=== PATIENT | male | born 2000 | race Caucasian/White ===

== ENCOUNTER 2023-02-09 10:09 | Emergency (ER) | payer OTHER, SELFPAY ==
[2023-02-09 10:16] VITALS: BP 123/60; PULSE 76; RESP 18; TEMP 36.5; O2SAT 99; BMI 22.4
--- NOTE | 2023-02-09 10:26 | DI.RAD.S_ITS ---
PROCEDURE: XR CHEST 2V INDICATIONS: short of breath, h/o asthma. TECHNIQUE: 2 views of the chest were acquired. COMPARISON: None. FINDINGS: Surgical changes and devices: None. Lungs and pleura: Lungs are clear. No pleural effusions or pneumothorax. Mediastinum: Mediastinal contours are normal. Heart size is normal. Bones and chest wall: No suspicious bony abnormalities. Soft tissues appear unremarkable. IMPRESSION: No acute cardiopulmonary process. Dictated by: Viktor Campbell M.D. on 02/09/2023 at 10:57 Approved by: Viktor Campbell M.D. on 02/09/2023 at 10:58
[2023-02-09 10:40] LABS: COVID19 -Nasal RAPID Negative (Negative)
[2023-02-09 11:24] VITALS: PULSE 70; RESP 12; O2SAT 99
--- NOTE | 2023-02-09 11:39 | ED_ITS ---
HPI - General Adult General Chief complaint: Shortness of Breath/Dyspnea Stated complaint: SOB,winded with physical activity Time Seen by Provider: 02/09/23 11:18 Source: patient Mode of arrival: Ambulatory History of Present Illness HPI narrative: Patient is a 22-year-old male. Has a history of asthma. On of last week and a fairly significant asthma attack. The next day he went to the walk- in clinic. Received steroids. He also smokes marijuana on a daily basis. He states he is no longer wheezing but today while he was at work he is experiencing quite a bit of fatigue and feeling like he is not taking a deep breath. No chest pain. No cough. No fevers. Related Data Home Medications Medication Instructions Recorded Confirmed albuterol sulfate 90 mcg/actuation 2 puff inhalation Q4H PRN wheezing 02/09/23 02/09/23 aerosol inhaler methylprednisolone 4 mg tablets in 0 mg PO DIRECTED 02/09/23 02/09/23 a dose pack Allergies Allergy/AdvReac Type Severity Reaction Status Date / Time No Known Drug Allergies Allergy Verified 02/09/23 10:22 Review of Systems Cardiovascular Cardiovascular: Reports system reviewed and no additional complaints, except as documented Respiratory Respiratory: Reports system reviewed and no additional complaints, except as documented Integumentary/Breasts Skin/Breast: Reports system reviewed and no additional complaints, except as documented Allergic/Immunologic Allergic/Immunologic: Reports system reviewed and no additional complaints, ex cept as documented Patient History Medical History Asthma Social History Smoking Status: Current some day smoker Smoking Status: Current some day smoker tobacco type: vaping alcohol intake frequency: 0-2 drinks per day Substance Use Type: marijuana Exam Initial Vital Signs Initial Vital Signs: Vital Signs Temperature 97.7 F 02/09/23 10:16 Pulse Rate 76 02/09/23 10:16 Respiratory Rate 18 02/09/23 10:16 Blood Pressure 123/60 02/09/23 10:16 Pulse Oximetry 99 02/09/23 10:16 Oxygen Delivery Method Room Air 02/09/23 10:16 HENMT Head: normal to inspection and normocephalic Resp Effort & Inspection: normal respiratory effort Auscultation: clear to auscultation bilaterally Cardio Rate: regular rate Rhythm: regular rhythm Neuro General: patient alert, patient awake and moves all extremities Extrem General: No edema Scores PERC Score Age greater than or equal to 50 years: No Heart rate greater than or equal to 100 bpm: No Room Air O2 Sat less than 95%: No Unilateral leg swelling: No Recent trauma or surgery: No Hemoptysis: No Prior PE or DVT: No Hormone Use: No Total PERC Score: 0 Course Orders Ordered: ED Orders 02/09/23 10:22 COVID19 -Nasal RAPID Stat 02/09/23 10:26 XR chest 2V Stat 02/09/23 10:31 EKG-12 Lead Stat Vital Signs Vital signs: Vital Signs - 8 hr 02/09/23 10:16 02/09/23 11:24 Temperature 97.7 F Pulse Rate 76 70 Respiratory Rate 18 12 Blood Pressure 123/60 Pulse Oximetry 99 99 Oxygen Delivery Method Room Air Room Air Medical Decision Making Lab Data Lab results reviewed: Yes I reviewed the patient's lab results. Labs: Lab Results 02/09/23 Range/Units 10:22 SARS-CoV-2 (PCR) Negative (Negative) Imaging Data Chest x-ray: Radiologist's Impression: PROCEDURE:? XR CHEST 2V ? INDICATIONS:? short of breath, h/o asthma. ? TECHNIQUE:? 2 views of the chest were acquired.? ? COMPARISON:? None. ? FINDINGS:? ? Surgical changes and devices:? None.? ? Lungs and pleura:? Lungs are clear.? No pleural effusions or pneumothorax.? ? Mediastinum:? Mediastinal contours are normal.? Heart size is normal.? ? Bones and chest wall:? No suspicious bony abnormalities.? Soft tissues appear unremarkable.? ? IMPRESSION:? No acute cardiopulmonary process. ECG Data Interpretation: Sinus rhythm Sinus arrhythmia Ventricular rate is 65 Normal axis Normal QRS Normal QTC No ST T wave changes MDM Narrative Medical decision making narrative: Chest x-ray is negative, COVID is negative, EKG is unremarkable, not tachypneic. Not hypoxic. Lungs are clear. Low suspicion for infection. Low suspicion for pulmonary embolism. Low suspicion for ACS. I do suspect that some of his symptoms related to the event that happened last week and potentially steroids that he has been taking today. Advised that he not smoke marijuana until his symptoms have improved. He will start taking a antihistamine from [id number]. He was given return precautions. He expressed understanding and agreement. Discharge Plan Departure Patient Disposition: Home Clinical Impression: Asthma Instructions: DI for Asthma -- Adult Activity Restrictions/Additional Instructions: I do recommend that you continue to take all your medications as directed and recommend that you start taking the antihistamine such as Claritin or Beatriz or Zyrtec. Contact your primary doctor for follow-up. Prescriptions: No Action methylprednisolone 4 mg tablets,dose pack 0 mg PO DIRECTED albuterol sulfate 90 mcg/actuation HFA aerosol inhaler 2 puff INHALATION Q4H PRN (Reason: wheezing) Stand Alone Forms: Patient Portal/API, Work Release Note
[2023-02-09 11:47] VITALS: BP 122/58; PULSE 70; RESP 20; O2SAT 100
== END 2023-02-09 11:45 | disposition home or self-care (01) ==
PROVIDERS: Emergency Provider Emergency Medicine
DX: J45.909 Unspecified asthma, uncomplicated (principal); Z20.822 Contact with and (suspected) exposure to COVID-19
CPT/HCPCS: 71046; 87635; 93005; 99283; 99284; C9803

== ENCOUNTER → 2023-11-04 10:34 | Outpatient (CLI) | payer OTHER, SELFPAY ==
--- NOTE | 2023-11-04 | DI.RAD.S_ITS ---
PROCEDURE: XR FINGER LT MIN 2V INDICATIONS: trauma tip of left middle finger TECHNIQUE: AP hand, 2 views of the 3rd finger(s) acquired. COMPARISON: None. FINDINGS: Bones: No fractures or dislocations. No suspicious bony lesions. Soft tissues: No suspicious soft tissue calcifications. IMPRESSION: Unremarkable 3rd finger radiographs. No fracture Approved by: Nguyễn Devi M.D. on 11/04/2023 at 19:16
== END ==
PROVIDERS: PCP Family Medicine; Referring Provider Family Medicine; Visit Provider Family Medicine
DX: S69.92XA Unspecified injury of left wrist, hand and finger(s), initial encounter (principal); M79.646 Pain in unspecified finger(s); X58.XXXA Exposure to other specified factors, initial encounter
CPT/HCPCS: 73140

== ENCOUNTER → 2024-01-04 14:40 | Outpatient (CLI) | payer OTHER, SELFPAY ==
--- NOTE | 2024-01-04 14:43 | DI.RAD.S_ITS ---
PROCEDURE: XR SHOULDER RT MIN 2V INDICATIONS: RIGHT SHOULDER PAIN TECHNIQUE: 3 views of the shoulder were acquired. COMPARISON: None. FINDINGS: Bones: No fractures or dislocations. No radiographic evidence of a Hill-Sachs deformity or osseous Bankart lesion. No suspicious bony lesions. Joint spaces are maintained. Visualized ribs appear intact. Soft tissues: No suspicious soft tissue calcifications. IMPRESSION: No acute fracture or dislocation. Normal alignment. Dictated by: Chad Gonzales M.D. on 01/04/2024 at 16:53 Approved by: Chad Gonzales M.D. on 01/04/2024 at 16:54
== END ==
PROVIDERS: PCP Family Medicine; Referring Provider Family Medicine; Visit Provider Family Medicine
DX: M24.411 Recurrent dislocation, right shoulder (principal)
CPT/HCPCS: 73030

== ENCOUNTER 2024-04-07 13:16 | Emergency (ER) | payer OTHER, SELFPAY ==
[2024-04-07] VITALS (8 sets, daily range): BP systolic 123–125; BP diastolic 76–77; PULSE 76–112; RESP 12–20; TEMP 37.2; O2SAT 96–99; BMI 26.5
--- NOTE | 2024-04-07 | DI.RAD.S_ITS ---
PROCEDURE: XR SHOULDER RT MIN 2V INDICATIONS: Post reduction of dislocation TECHNIQUE: 2 views of the shoulder were acquired. COMPARISON: [facility], CR, XR SHOULDER RT MIN 2V, 04/07/2024, 13:38. FINDINGS: Bones: Interval reduction with relatively good anatomic alignment. No discrete fracture. Soft tissues: No suspicious soft tissue calcifications. IMPRESSION: Good anatomic alignment with reduction of previous anterior dislocation. No discrete fractures identified. Dictated by: Bonita Phillips M.D. on 04/07/2024 at 15:19 Approved by: Bonita Phillips M.D. on 04/07/2024 at 15:20
--- NOTE | 2024-04-07 13:32 | DI.RAD.S_ITS ---
PROCEDURE: XR SHOULDER RT MIN 2V INDICATIONS: dislocation TECHNIQUE: 2 views of the shoulder were acquired. COMPARISON: [facility], CR, XR SHOULDER RT MIN 2V, 01/04/2024, 14:47. FINDINGS: Bones: Humeral head is located inferior medial to the glenohumeral joint space. No visualized fracture. Soft tissues: No suspicious soft tissue calcifications. IMPRESSION: Anterior dislocation. No gross fracture. Recommend follow-up imaging after reduction for further evaluation of possible fracture. Dictated by: Bonita Phillips M.D. on 04/07/2024 at 14:06 Approved by: Bonita Phillips M.D. on 04/07/2024 at 14:06
[2024-04-07] MEDS: OXYCODONE/ACETAMINOPHEN 5/325 TABLET 1 TAB PO (13:39)
[2024-04-07] MEDS: IBUPROFEN 400 MG TABLET PO (13:39)
[2024-04-07] MEDS: HYDROMORPHONE 1 MG INJ 0.5 MG IV (14:13)
[2024-04-07] MEDS: propofoL 200 MG/20 ML VIAL IV (14:26)
--- NOTE | 2024-04-07 14:47 | ED.GENADULT ---
HPI - General Adult General Chief complaint: Extremity Injury, Upper Stated complaint: poss dislocated R shoulder Time Seen by Provider: 04/07/24 13:45 Source: patient Mode of arrival: Ambulatory History of Present Illness HPI narrative: 21-year-old young man presents with acute right shoulder pain strongly suspected shoulder dislocation. He states this will be his 6th shoulder dislocation on that side. He dislocated it 2 times in 1 week approximately 2 months ago. He just finished a 6 week course of physical therapy. He works in the [employer] and had his arm extended up above his head and was externally rotating slipped and the arm was pulled. He is in severe pain on arrival. Able to be cooperative. Describes some tingling in his fingertips Related Data Home Medications Medication Instructions Recorded Confirmed albuterol sulfate 90 mcg/actuation 2 puff inhalation Q4H PRN wheezing 02/09/23 06/05/23 aerosol inhaler Allergies Allergy/AdvReac Type Severity Reaction Status Date / Time No Known Drug Allergies Allergy Verified 04/07/24 13:28 Review of Systems Review of Systems Narrative: Pertinent positive and negative findings as per HPI Patient History Medical History Mood disorder PTSD (post-traumatic stress disorder) Suicidal ideation Vapes nicotine containing substance Asthma Social History Smoking Status: Former smoker Smoking Status: Former smoker tobacco type: vaping alcohol intake frequency: 0-2 drinks per day Substance Use Type: marijuana Exam Initial Vital Signs Initial Vital Signs: Vital Signs Temperature 99.0 F 04/07/24 13:24 Pulse Rate 112 H 04/07/24 13:24 Respiratory Rate 20 04/07/24 13:24 Pulse Oximetry 97 04/07/24 13:24 Oxygen Delivery Method Room Air 04/07/24 13:24 General: Alert appropriate in no acute distress Respiratory: Able to speak in full sentences, no obvious respiratory distress Skin: No obvious rashes, warm and dry Neurologic: Grossly intact no obvious asymmetries or abnormalities Psych: appropriate insight and affect, cooperative Extremity: Holding his right arm at 45 degree angle abducted. Procedures Orthopedic Joint Reduction Right shoulder: Time of procedure: 15:06 Time Out Performed: Yes Side: right Joint Reduction Location: shoulder Analgesia: procedural sedation Shoulder Technique Used (if applicable): traction/counter-traction and scapula manipulation Post-reduction neuro exam: intact Post-reduction vascular: intact Post Reduction X-Ray Obtained: Yes Post Reduction X-Ray Results: reduced Splint Applied: Yes Patient Tolerated Procedure: Well Procedural Sedation Time of procedure: 15:09 Consent signed: Yes Indication: fracture/dislocation reduction ASA Class: I Preparation: quality assurance monitor body applied, pulse oximeter, capnometry used, supplemental O2 applied, suction/airway equipment at bedside and IV secured IV Propofol dose (mg): 160 Intraservice time/total sedation time (min): 9 ED Sedation Level: Moderate (Concious) Additional Comments: Due to pain we were unable to completely an dressed the patient prior to the procedure. He was initially given 40 mg of propofol to get all of his outer your off. Additional aliquots up to a total of 160 mg for adequate sedation to reduce the shoulder. No complications with respiratory depression Course Orders Ordered: ED Orders 04/07/24 13:32 XR shoulder RT min 2V Stat Discontinued Medications Hydromorphone HCl (Hydromorphone 1 Mg Inj) 0.5 mg IV NOW ONE Stop: 04/07/24 14:06 Last Admin: 04/07/24 14:13 Dose: 0.5 mg Documented By: TINO Ibuprofen (Ibuprofen 400 Mg Tablet) 400 mg PO NOW ONE Stop: 04/07/24 13:37 Last Admin: 04/07/24 13:39 Dose: 400 mg Documented By: RAYRAY Oxycodone/Acetaminophen (Oxycodone/Acetaminophen 5/325 Tablet) 1 tab PO NOW ONE Stop: 04/07/24 13:37 Last Admin: 04/07/24 13:39 Dose: 1 tab Documented By: RAYRAY Propofol (Propofol 200 Mg/20 Ml Vial) 200 mg IV NOW ONE Stop: 04/07/24 14:15 Last Admin: 04/07/24 14:26 Dose: 200 mg Documented By: TINO Vital Signs Vital signs: Vital Signs - 8 hr 04/07/24 13:24 04/07/24 14:25 04/07/24 14:41 Temperature 99.0 F Pulse Rate 112 H 81 Respiratory Rate 20 12 16 Blood Pressure 123/77 Pulse Oximetry 97 99 96 Oxygen Delivery Method Room Air Oxygen Flow Rate 0 Medical Decision Making MDM Narrative Medical decision making narrative: CC: Acute shoulder pain Complicating co-morbidities: This is his 6th shoulder dislocation of the age of 23, just completed a 6 week course of physical therapy for the same Data collected from: patient Differential considered: Shoulder dislocation, fracture, combination of both Exam documented above, pertinent findings include: Initial exam his shoulder is held at 90 degree flexion in 90 degree abduction for comfort. No other injuries Imaging studies independently reviewed: Initial x-ray demonstrates an anterior dislocation without fracture Postreduction x-ray indicates appropriately reduced shoulder Treatments: Sedation, shoulder reduction Re-evaluations: Patient is doing quite well after the procedure. Arm is in a sling. Discussion: 23-year-old gentleman with right shoulder dislocation now relocated. He has in a sling with adjustment around the body to hold the arm in place. He was referred to Orthopedic surgery. He is aware that after this many dislocations he does need evaluation even though he has been avoiding talking with the orthopedic surgeons. He is neurovascularly intact. Pain is adequately controlled and he will be discharged home Discharge Plan Departure Patient Disposition: Home Clinical Impression: Anterior shoulder dislocation Qualifiers: Encounter type: initial encounter Laterality: right Qualified Code(s): S43.014A - Anterior dislocation of right humerus, initial encounter Instructions: DI for Shoulder Dislocation, DI for Moderate Sedation Activity Restrictions/Additional Instructions: Thank you for coming in today You need to see an orthopedic surgeon about your repeatedly dislocating shoulder. You were given propofol to help your muscles relax and the shoulder was reduced. You need to stay in the sling with the area around your body tight so that your arm is not moving for at least a week. Using 400 mg of ibuprofen (2 [id number] pills) and 1 Tylenol every 6 hours can be very helpful in controlling pain. Please contact [facility] at [phone] explain that you were seen in the emergency department with a shoulder dislocation that was reduced. This is the 6th time that has happened and you need to be further evaluated If you find that you are getting worse or develop any new symptoms, please feel free to return to the emergency department for further evaluation. Prescriptions: No Action albuterol sulfate 90 mcg/actuation HFA aerosol inhaler 2 puff INHALATION Q4H PRN (Reason: wheezing) Referrals: Radha Galicia MD [Primary Care Provider] - Stand Alone Forms: Patient Portal/API
--- NOTE | 2024-04-07 14:53 | PC.NURSE ---
Prior to reduction, patient undressed from work clothes during procedural sedation. Dr. Seo able to reduce right shoulder with no complications. Patient vs remained stable and pt tolerated well. RT at bedside for procedure. Post reduction xray ordered and completed at bedside.
--- NOTE | 2024-04-07 14:59 | PC.NURSE ---
14:25 40Mg Propofol administed by MD Seo. Began undressing pt. PAtient still conversing and moaning in pain. at 1428, additional 60mg propofol administered IV by MD. Able to undress patient and get to bed for prodedure. First attempt for reduction was unsuccessful, patient moaning. Additioanl 60mg propofol administered by provider. 2nd attempt successful.
== END 2024-04-07 15:22 | disposition home or self-care (01) ==
PROVIDERS: Emergency Provider Emergency Medicine; PCP Family Medicine
DX: S43.014A Anterior dislocation of right humerus, initial encounter (principal)
CPT/HCPCS: 23650; 73030; 96374; 99284; 99285; J1171; J2704

== ENCOUNTER → 2024-04-25 10:42 | Outpatient (CLI) | payer OTHER, SELFPAY ==
--- NOTE | 2024-04-25 | DI.RAD.S_ITS ---
PROCEDURE: FL SHOULDER INJECTION MR/CT RT INDICATIONS: POSSIBLE BANKART TEAR COMPARISON: None. TECHNIQUE: The indications, alternatives, benefits, risks, and complications of the procedure were explained to the patient. Written informed consent was obtained and placed in the chart. The shoulder was examined fluoroscopically and a site for needle placement chosen for entry into the glenohumeral joint from an anterior approach. The skin was prepped and draped in a sterile fashion, and 1% lidocaine infiltrated from skin down to joint capsule. A spinal needle was inserted into the glenohumeral joint, and a small amount of iodinated contrast media injected to confirm intra-articular placement of the needle tip. This was followed by approximately 12 mL dilute solution of a gadolinium containing MR contrast agent. The needle was removed and a dressing was applied. The patient was given postprocedural instructions and sent to the MR suite for MR imaging. FINDINGS: A single fluoroscopic spot image demonstrates intra-articular location of injected iodinated contrast. IMPRESSION: Successful fluoroscopically guided administration of dilute Gadolinium solution into the right shoulder joint for MR arthrogram. Dictated by: Edouard BETANCOURT Interpreted: Jorge Garcia MD on 04/25/2024 at 12:03 Transcribed by: ANTELMO on 04/25/2024 at 12:03 Approved by: Jorge Garcia M.D. on 04/27/2024 at 8:16
--- NOTE | 2024-04-25 | DI.MRI.S_ITS ---
PROCEDURE: MR SHOULDER RT W CON INDICATIONS: POSSIBLE BANKHART TEAR TECHNIQUE: After the administration of 12 mL of dilute intra-articular Gadolinium contrast, oblique coronal T1 and T2 spin echo with fat saturation, oblique sagittal T1 spin echo with and without fat saturation, oblique sagittal T2 fast spin echo with fat saturation, axial T1 spin echo with fat saturation through the shoulder. COMPARISON: None. FINDINGS: Image quality: Excellent. Rotator cuff: Distal supraspinatus tendinosis and low-grade articular and bursal surface partial-thickness tear at its insertion on the humeral head is seen. Distal infraspinatus tendinosis. Tendinosis and low-grade partial-thickness tear involving superior to mid fibers of distal subscapularis is seen. No full-thickness rotator cuff tendon rupture. No rotator cuff muscle atrophy on sagittal images. Bones and bursae: Marrow edema is noted involving posterior lateral humeral head with subacute appearing Hill-Sachs deformity. No acromioclavicular joint degeneration. Type 2 acromion without an os acromiale. Capsule and soft tissues: There is extensive fraying of anterior inferior glenoid labrum with T2 hyperintense signal and contrast extension consistent with anterior inferior labral tear. The glenohumeral ligaments appear intact. The long head of the biceps tendon demonstrates normal location and morphology. The rotator interval appears normal, without fibrosis. The coracohumeral ligament is of normal thickness. No intra-articular bodies. IMPRESSION: 1. Subacute appearing Hill-Sachs deformity involving posterior lateral humeral head. No other area of abnormal marrow signal. No Bankart fracture. No intra-articular loose bodies. 2. Finding is consistent with anterior inferior glenoid labral tear (Bankart lesion). 3. Low-grade articular and bursal surface partial thickness tear involving distal supraspinatus at its insertion on the humeral head. Low-grade partial-thickness tear involving superior to mid fibers of distal subscapularis. Distal infraspinatus tendinosis. No full-thickness rotator cuff tendon rupture. Dictated by: Zachary Howard M.D. on 04/26/2024 at 11:07 Approved by: Zachary Howard M.D. on 04/26/2024 at 11:10
[2024-04-25] MEDS: LIDOCAINE 1% 20 ML INJ (12:49)
== END ==
PROVIDERS: PCP Family Medicine; Referring Provider Orthopaedic Surgery; Visit Provider Orthopaedic Surgery
DX: M24.411 Recurrent dislocation, right shoulder (principal); S46.011A Strain of muscle(s) and tendon(s) of the rotator cuff of right shoulder, initial encounter; S43.431A Superior glenoid labrum lesion of right shoulder, initial encounter
CPT/HCPCS: 23350; 73040; 73222; A9579; Q9967